=== PATIENT | female | born 1975 | race Caucasian/White ===

== ENCOUNTER 2019-11-19 13:09 | Inpatient (IN) ==
--- NOTE | 2019-11-19 13:47 | Emergency Department Note ---
ED Visit Note I assisted Dr. Toscano in the care of this patient. Please see attending attestation. Sulaiman Vega DO Resident, Family & Community Medicine, [facility] . Resident Activity Tracking Resident Involvement: Resident Care Provided Care Provided: Adult ED
[2019-11-19] MEDS ORDERED: AMPICILLIN/SULBACTAM SOD 3,000 MG in 0.9 % SODIUM CHLORIDE 100 ML IV STA (13:48)
[2019-11-19] MEDS ORDERED: SODIUM CHLORIDE 0.9% 1000ML 1,000 ML IV ONE (13:48)
[2019-11-19] MEDS ORDERED: DEXAMETHASONE SOD INJ 4 MG/ML VIAL IV STA (13:55)
--- NOTE | 2019-11-19 13:55 | Emergency Department Note ---
History of Present Illness General Chief complaint: Sore Throat Stated complaint: SORE/SWOLLEN THROAT Time Seen by Provider: 11/19/19 13:26 Source: patient Mode of arrival: ambulatory History of Present Illness Provider complaint: Sore throat Onset (ago): day(s) 2 Location: mouth and left Severity: moderate Maximum Pain Intensity: 8 Quality: + sharp Exacerbated By: + eating Associated symptoms: no chest pain, no cough, no fever/chills, no nausea/vomiting and no shortness of breath This is a 44-year-old female with no significant past medical history other than anxiety presenting with sore throat for the past 2 days. The pain is on the left side. She states it is sharp. It is worse when she tries to drink. She has been unable to drink anything. No associated fever, vomiting, chest pain, shortness of breath or cough or cold symptoms. She denies any known exposure to COVID-19 and has been quarantining at home. She denies any chance of . She rates it an 8 out of 10 in severity. She did see a telehealth doctor yesterday who put her on amoxicillin. She has had 3 doses with no improvement. Home Medications Home Medications Medication Instructions Recorded Confirmed Type lamotrigine [Lamictal] 100 mg PO QAM 11/19/19 11/19/19 History lamotrigine [Lamictal] 200 mg PO QAM 11/19/19 11/19/19 History Allergies Allergy/AdvReac Type Severity Reaction Status Date / Time No Known Allergies Allergy Unverified 11/19/19 14:24 Past Med/Surg History Medical History (Updated 11/19/19 @ 13:52 by Kj Toscano MD) Anxiety Social History (Updated 11/19/19 @ 13:53 by Kj Toscano MD) marital status: Feels Safe at Home: Yes Smoking Status: Current some day smoker Review of Systems See HPI for pertinent positives & negatives. and A total of 10 systems reviewed and were otherwise negative Physical Exam Vital Signs Vital Signs - 24 hr 11/19/19 13:17 11/19/19 14:08 Temperature 37.2 C Temperature Source Oral Pulse Rate 120 H Pulse Rate [Right Finger] 105 H Pulse Rhythm [Right Finger] Regular Respiratory Rate 19 20 Respiratory Effort / Characteristics Non-Labored Spontaneous Respiratory Depth Normal Blood Pressure 130/90 Blood Pressure [Right Arm] 145/88 H Blood Pressure Mean 103 Blood Pressure Mean [Right Arm] 107 Pulse Oximetry 98 100 Oxygen Delivery Method Room Air Room Air Sepsis Recent Fever Within 48 Hours No Sepsis Action Taken by Nursing No Action Required Constitutional: Vital signs reviewed. Eyes: Pupils are equal round reactive to light. Conjunctiva are noninjected. ENT: Pharynx is erythematous with a left peritonsillar abscess which is fluctuant on palpation. She has trismus without drooling. Mucous membranes are dry. Neck supple without meningeal signs. Respiratory: Clear to auscultation bilaterally. Breath sounds are equal bilaterally. No stridor. Cardiovascular: Tachycardic with regular rhythm. Heart rate 120. GI: Soft, nondistended and nontender. Bowel sounds are present. Musculoskeletal: No peripheral edema. No lower extremity tenderness. Integumentary: No cyanosis. or jaundice. Neurological: The patient is awake and alert. No focal deficits. Psychiatric: Anxious. Course Administered Medications Discontinued Medications Dexamethasone (Decadron) 10 mg IV NOW STA Stop: 11/19/19 13:56 Last Admin: 11/19/19 14:25 Dose: 10 mg Documented by: [id number] Ampicillin Sodium/Sulbactam Sodium 3,000 mg/ Sodium Chloride 108 mls @ 200 mls/hr IV NOW STA; Protocol Stop: 11/19/19 14:20 Last Admin: 11/19/19 14:34 Dose: 200 mls/hr Documented by: [id number] Sodium Chloride (Nss 1000ml) 1,000 mls @ 999 mls/hr IV .Q1H1M ONE Stop: 11/19/19 14:48 Last Admin: 11/19/19 14:10 Dose: 999 mls/hr Documented by: [id number] Morphine Sulfate (Morphine Sulfate) 2 mg IV NOW STA Stop: 11/19/19 14:06 Last Admin: 11/19/19 14:25 Dose: 2 mg Documented by: [id number] Ondansetron HCl (Zofran) 4 mg IV NOW STA Stop: 11/19/19 14:06 Last Admin: 11/19/19 14:25 Dose: 4 mg Documented by: [id number] Medical Decision Making Differential Diagnosis Peritonsillar abscess, strep pharyngitis, viral pharyngitis, dehydration, electrolyte abnormality Medical Records Attestation: I reviewed the patient's medical records. I did perform a limited focused review of portions of the patient's old chart on the electronic medical record. The patient has had no recent pertinent visits to this hospital. Laboratory Data Attestation: I reviewed the patient's lab results. Result diagrams: 11/19/19 14:11 11/19/19 14:11 Lab Results 11/19/19 11/19/19 Range/Units 14:11 14:11 WBC 13.48 H (4.8-10.8) K/uL RBC 4.01 L (4.2-5.4) M/uL Hgb 12.9 (12.0-16.0) g/dL Hct 37.6 (37-47) % MCV 93.8 (80-100) fL MCH 32.2 (25-34) pg MCHC 34.3 (32-36) g/dL RDW Std Deviation 43.8 (36.4-46.3) fL RDW Coeff of Mile 12.7 (11.5-14.5) % Plt Count 314 (130-400) K/uL MPV 9.5 (7.4-10.4) fL Immature Gran % (Auto) 0.3 % Neut % (Auto) 83.3 % Lymph % (Auto) 9.7 % Carroll % (Auto) 6.5 % Eos % (Auto) 0.1 % Baso % (Auto) 0.1 % Immature Gran # (Auto) 0.04 H (0.00-0.02) K/uL Neut # (Auto) 11.23 H (1.4-6.5) K/uL Lymph # (Auto) 1.31 (1.2-3.4) K/uL Carroll # (Auto) 0.87 H (0.11-0.59) K/uL Eos # (Auto) 0.02 (0-0.5) K/uL Baso # (Auto) 0.01 (0-0.2) K/uL Sodium 136 (136-145) mmol/L Potassium 3.5 (3.5-5.1) mmol/L Chloride 105 (98-107) mmol/L Carbon Dioxide 22 (21-32) mmol/L Anion Gap 9.0 (3-11) BUN 16 (7-18) mg/dl Creatinine 0.70 (0.6-1.2) mg/dl Est Cr Clr Drug Dosing 81.0 ml/min Est GFR ( Amer) 123.9 Est GFR (Non-Af Amer) 106.9 BUN/Creatinine Ratio 22.5 H (10-20) Glucose 100 H (70-99) mg/dl Calcium 9.3 (8.5-10.1) mg/dl Total Bilirubin 0.5 (0.2-1) mg/dl AST 13 L (15-37) U/L ALT 19 (12-78) U/L Alkaline Phosphatase 54 (45-117) U/L Total Protein 8.2 (6.4-8.2) gm/dl Albumin 4.4 (3.4-5.0) gm/dl Globulin 3.8 (2.5-4.0) gm/dl Albumin/Globulin Ratio 1.2 (0.9-2) Blood Pressure Blood Pressure Findings: Elevated blood pressure Blood Pressure Disposition: Referred to patients primary care provider MDM Narrative I did evaluate the patient as noted above. The patient is presenting with a sore throat for 2 days. On exam she has a left peritonsillar abscess. She is tachycardic and has not been able to drink any fluids. The case was discussed with Dr. Leyva who requested that we get a CT scan to confirm the diagnosis. IV access was established. She was treated with normal saline IV. She was also given Unasyn IV. She was given IV morphine and Zofran for the pain. I did order and review the patient's blood work as noted in the electronic medical record. Her white blood cell count is elevated. Electrolytes are unremarkable. Discharge Plan Visit Data Chief Complaint: Sore Throat Stated Complaint: SORE/SWOLLEN THROAT ED Provider: Kj Toscano ED Midlevel Provider: Sulaiman Vega Prescriptions Prescriptions: No Action lamotrigine [Lamictal] 200 mg Tablet 200 mg PO QAM RF: 0 lamotrigine [Lamictal] 100 mg Tablet 100 mg PO QAM RF: 0
[2019-11-19] MEDS ORDERED: ONDANSETRON INJ 2 MG/ML 2 ML VIAL IV STA (14:05)
[2019-11-19] MEDS ORDERED: MoRPHine SULFATE 2 MG/ML CARP IV STA (14:05)
[2019-11-19 14:19] LABS: Basophils # (auto) 0.01 K/uL (0-0.2); Basophils % (auto) 0.1 %; Eosinophils # (auto) 0.02 K/uL (0-0.5); Eosinophils % (auto) 0.1 %; Hematocrit (blood only) 37.6 % (37-47); Hemoglobin 12.9 g/dL (12.0-16.0); Immature Granulocytes # (auto) 0.04 K/uL (0.00-0.02); Immature Granulocytes % (auto) 0.3 %; Lymphocytes # (auto) 1.31 K/uL (1.2-3.4); Lymphocytes % (auto) 9.7 %; Mean Corpuscular Hemoglobin 32.2 pg (25-34); Mean Corpuscular Hgb Conc 34.3 g/dL (32-36); Mean Corpuscular Volume 93.8 fL (80-100); Mean Platelet Volume 9.5 fL (7.4-10.4); Monocytes # (auto) 0.87 K/uL (0.11-0.59); Monocytes % (auto) 6.5 %; Neutrophils # (auto) 11.23 K/uL (1.4-6.5); Neutrophils % (auto) 83.3 %; Platelet Count 314 K/uL (130-400); RDW Coefficient of Variation 12.7 % (11.5-14.5); RDW Standard Deviation 43.8 fL (36.4-46.3); Red Blood Count 4.01 M/uL (4.2-5.4); White Blood Count 13.48 K/uL (4.8-10.8)
[2019-11-19 14:37] LABS: Albumin Level 4.4 gm/dl (3.4-5.0); BUN Creatinine Ratio 22.5 (10-20); Calcium 9.3 mg/dl (8.5-10.1); Est GFR (African American) 123.9; Est GFR (Non-African American) 106.9; Potassium 3.5 mmol/L (3.5-5.1)
[2019-11-19 14:40] LABS: Albumin Globulin Ratio 1.2 (0.9-2); Bilirubin,Total 0.5 mg/dl (0.2-1); Globulin 3.8 gm/dl (2.5-4.0); Total Protein 8.2 gm/dl (6.4-8.2)
[2019-11-19] MEDS ORDERED: IOVERSOL 100ml IV PRN (15:07)
--- NOTE | 2019-11-19 15:23 | CT Scan Report ---
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 Clinical concern for sharon tonsillar abscess. COMPARISON: None TECHNIQUE: Multiple axial CT images of the soft tissues of the neck were obtained following the intra venous ministration of 92 mL Optiray 320. A dose lowering technique was used consistent with the prin cipals of HELGA. FINDINGS: Orbits are unremarkable. The imaged intracranial structures demonstrate no acute abnormality. The car otid arteries and internal jugular veins appear unremarkable. Tiny subcentimeter left thyroid nodule is likely benign. The parotid and submandibular glands appear unremarkable. Prominent submandibular a nd cervical chain lymph nodes are likely on a reactive basis. Mild enlargement of the adenoid tonsils . Bilateral palatine tonsillar calcifications are present. There is an ill-defined peripherally enhan cing 1.7 x 1.8 cm fluid collection adjacent to left palatine tonsil, image 152 series 3 which demonst rates mild loculation. This results in moderate narrowing of the oral pharynx with partial effacement of the left parapharyngeal fat plane. Mild surrounding edema extends into the retropharyngeal tissue s. Subglottic airway is unremarkable. Lung apices are clear without pneumothorax. Bones appear intact . Paranasal sinuses appear clear. Straightening of the normal cervical lordosis. Mild disc space narr owing with spondylitic spurring at C4-C5 and C5-C6. IMPRESSION: 1. Mild enlargement and heterogeneity of the adenoid and palatine tonsils is suggestive of acute tons illitis. Additionally, there is a multiloculated peripherally enhancing 1.7 x 1.8 cm fluid collection adjacent to the left palatine tonsil suggestive of a peritonsillar abscess. This results in partial effacement with at least moderate narrowing of the oral pharyngeal airway. 2. Mildly prominent level I and level II lymph nodes are likely on a reactive basis. ACT 112: Negative or not required by law. The above report was generated using voice recognition software. It may contain grammatical, syntax o r spelling errors. Electronically signed by: Primitivo Alva M.D. 11/19/2019 3:22 PM
--- NOTE | 2019-11-19 15:45 | Emergency Department Note ---
ED Visit Note I received this patient at change of shift signout from Dr. Toscano please see his note for initial history and physical. The patient is a 44-year-old female who presented to the emergency department for an evaluation of sore throat. She had signs of peritonsillar abscess. Because of the COVID-19 outbreak after discussion with ENT a CT of the neck was obtained to evaluate for peritonsillar abscess. The patient was treated with Decadron as well as Unasyn. She was treated with pain medication and when on my evaluation she was feeling much bett er. I did review the patient's CT with her. 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 Clinical concern for peritonsillar abscess. COMPARISON: None TECHNIQUE: Multiple axial CT images of the soft tissues of the neck were obtained following the intravenous ministration of 92 mL Optiray 320. A dose lowering technique was used consistent with the principals of ALARA. FINDINGS: Orbits are unremarkable. The imaged intracranial structures demonstrate no acute abnormality. The carotid arteries and internal jugular veins appear unremarka ble. Tiny subcentimeter left thyroid nodule is likely benign. The parotid and submandibular glands appear unremarkable. Prominent submandibular and cervical chain lymph nodes are likely on a reactive basis. Mild enlargement of the adenoid tonsils. Bilateral palatine tonsillar calcifications are present. There is an ill-defined peripherally enhancing 1.7 x 1.8 cm fluid collection adjacent to left palatine tonsil, image 152 series 3 which demonstrates mild loculation. This results in moderate narrowing of the oral pharynx with partial effacement of the left parapharyngeal fat plane. Mild surrounding edema extends into the retropharyngeal tissues. Subglottic airway is unremarkable. Lung apices are clear without pneumothorax. Bones appear intact. Paranasal sinuses appear clear. Straightening of the normal cervical lordosis. Mild disc space narrowing with spondylitic spurring at C4-C5 and C5-C6. IMPRESSION: 1. Mild enlargement and heterogeneity of the adenoid and palatine tonsils is suggestive of acute tonsillitis. Additionally, there is a multiloculated peripherally enhancing 1.7 x 1.8 cm fluid collection adjacent to the left palatine tonsil suggestive of a peritonsillar abscess. This results in partial effacement with at least moderate narrowing of the oral pharyngeal airway. 2. Mildly prominent level I and level II lymph nodes are likely on a reactive basis. ACT 112: Negative or not required by law. The above report was generated using voice recognition software. It may contain grammatical, syntax or spelling errors. Electronically signed by: Primitivo Alva M.D. 11/19/2019 3:22 PM Dictated: 11/19/191511 Transcribed: 11/19/191511 I also discussed the CT report with Dr. Leyva at 1530 who knew about the patient previously. At this time she would recommend the patient be admitted to the hospital. I will talk to the medicine team about medical admission for IV antibiotics. She also recommended Unasyn for an IV antibiotic continued she also recommended Decadron 10 mg every 8 hours for 3 doses. She will reevaluate the patient in the morning for possible I&D if the patient continues to have significant swelling. 1545: I discussed this case with Dr. Ovalle who is on-call for the [facility] hospitalist group. He will evaluate the patient in the emergency department for further management and disposition. .
[2019-11-19] MEDS ORDERED: fentaNYL citrate 100 MCG/2 ML VIAL IV PRN (15:49)
--- NOTE | 2019-11-19 16:43 | History & Physical Report ---
Date of Service November 19, 2019 Assessment & Plan (1) Peritonsillar abscess: As discussed with Dr Leyva by ER physician, recommended admission with IV antibiotics and steroids for review by ENT tomorrow IV Unasyn IV Decadron For pain relief: acetaminophen (can change to IV if too painful for patient to swallow), IV toradol PRN, oxycodone PO PRN, morphine IV PRN NPO after midnight with IV fluids Consult ENT (2) Anxiety: Continue lamictal Admission and Anticipated Discharge Date Admission Date: 11/19/2019 History of Present Illness Chief Complaint: Peritonsillar abscess Primary Care Provider: NO PCP Rose Mcgarry is a 44 year old female who presents to the ER with worsening neck swelling, sore throat and painful eating for the past 3 days getting progressively worse. She had a televisit with [facility] and was started on amoxicillin as an outpatient but despite this and ibuprofen her symptoms have become progressively worse. Swelling much larger the following day on Sunday. She denies any fevers or chills, shortness of breath, chest pain or known exposure to COVID-19. Allergies Allergy/AdvReac Type Severity Reaction Status Date / Time No Known Allergies Allergy Unverified 11/19/19 14:24 Home Medications Home Medications Medication Instructions Recorded Confirmed Type lamotrigine [Lamictal] 100 mg PO QAM 11/19/19 11/19/19 History lamotrigine [Lamictal] 200 mg PO QAM 11/19/19 11/19/19 History Past Med/Surg History Medical History (Updated 11/19/19 @ 16:57 by Saúl Ovalle MD) Anxiety Social History (Updated 11/19/19 @ 13:53 by Kj Toscano MD) Preferred Language: Nigerien Communication Ability: Effective Ramp Service Agent Required: No Beliefs That Will Affect Care: None marital status: Current Living Situation: Spouse Other Information That Helps Us Care for You: No Feels Safe at Home: Yes Safety Concerns: Feels Safe At This Time Smoking Status: Current some day smoker Tobacco Type: e-cigarettes ; Hx Alcohol Use: Yes Alcohol type: wine Hx Substance Use: No Review of Systems Review of Systems: All systems reviewed & are unremarkable except as noted in HPI & below Physical Exam Constitutional: well developed and well nourished; no acute distress Eyes: + anicteric sclerae; normal pupil size ENMT: Painful palpation of left side of neck, not visibly enlarged but shotty lymphadenopathy felt. Throat not examined as unlikely to change any management, already had CT findings and to reduce exposure to mouth secretions Respiratory: normal respiratory effort, lungs clear to auscultation Cardiovascular: RRR, no murmur, no edema Gastrointestinal (Abdomen): normal bowel sounds, soft, nontender, no hepatosplenomegaly Skin: no rashes, warm and dry Neurologic: moves all extremities and awake; not confused Psychiatric: A+Ox3, euthymic affect Lymphatic: + cervical lymphadenopathy (anterior shotty on left side); no subclavicular lymphadenopathy Results & Data Results & Data ([facility]) Vital Signs (Past 12 Hours) Vital Signs Temp Pulse Pulse Resp BP BP Pulse Ox 11/19/19 16:06 90 18 119/79 99 11/19/19 15:19 104 H 18 138/92 100 11/19/19 14:08 105 H 20 145/88 H 100 11/19/19 13:17 37.2 C 120 H 19 130/[address] soft tissue neck w con IMPRESSION: 1. Mild enlargement and heterogeneity of the adenoid and palatine tonsils is suggestive of acute tonsillitis. Additionally, there is a multiloculated peripherally enhancing 1.7 x 1.8 cm fluid collection adjacent to the left palatine tonsil suggestive of a peritonsillar abscess. This results in partial effacement with at least moderate narrowing of the oral pharyngeal airway. 2. Mildly prominent level I and level II lymph nodes are likely on a reactive basis. Code Status & VTE Plan Code Status Full VTE Prophylaxis Plan VTE Prophylaxis will be ordered: No Reason for no VTE drug order: Treatment not indicated Reason for no VTE mechanical prophylaxis: Treatment not indicated PG Care Time/CCT Total # of Minutes Spent Total Time Spent with Patient: Total time spent is greater than 50% in coordination of care (as documented) at patient's floor/unit and/or counseling patient: Coding Level of Care Code 06805 Initial Inpt Care Lvl 2 Diagnoses Peritonsillar abscess J36 Anxiety F41.9
[2019-11-19] MEDS: LACTATED RINGER'S 1,000 ML IV SCH (17:05)
[2019-11-19] MEDS ORDERED: ACETAMINOPHEN 325 MG TAB PO PRN (17:57)
[2019-11-19] MEDS ORDERED: ONDANSETRON INJ 2 MG/ML 2 ML VIAL IV PRN (17:57)
[2019-11-19] MEDS ORDERED: OXYCODONE HCL IR 5 MG TAB (IMMEDIATE RELEASE) PO PRN (18:29)
[2019-11-19] MEDS ORDERED: KETOROLAC 30 MG/ML VIAL IV PRN (18:32)
[2019-11-19] MEDS ORDERED: ACETAMINOPHEN 65 ML IV PRN (18:34)
[2019-11-19] MEDS: HYDROmorphone INJ 1 MG/ML SYRINGE IV PRN ×2 (18:37→23:36)
[2019-11-19] MEDS: dexAMETHasone 10 MG in SYRINGE 0 ML IV SCH (20:18)
[2019-11-19] MEDS: AMPICILLIN/SULBACTAM SOD 3,000 MG in 0.9 % SODIUM CHLORIDE 100 ML IV SCH (20:23)
[2019-11-20] MEDS: LACTATED RINGER'S 1,000 ML IV SCH (01:59)
[2019-11-20] MEDS: dexAMETHasone 10 MG in SYRINGE 0 ML IV SCH ×2 (01:59→07:53)
[2019-11-20] MEDS: AMPICILLIN/SULBACTAM SOD 3,000 MG in 0.9 % SODIUM CHLORIDE 100 ML IV SCH ×2 (01:59→07:52)
--- NOTE | 2019-11-20 07:50 | ENT Consultation ---
Date of Consultation November 20, 2019 Assessment & Plan (1) Peritonsillar abscess: 44-year-old female with left peritonsillar abscess, improved on IV antibiotics and steroids. No significant trismus or clinical findings consistent with drainable abscess today. -okay for discharge home -okay for p.o. intake -discharge on 10 days of Augmentin, Medrol Dosepak -follow-up in my office in 1-2 weeks or sooner if worsening symptoms - [phone]. My office will contact patient to arrange follow up appointment History of Present Illness Attending Physician: Kolby Bhagat MD History of Present Illness 44-year-old female seen in consultation for left peritonsillar abscess. Patient reports progressive left-sided sore throat beginning 4 days ago. Seen at urgent care and started on amoxicillin without improvement. She developed worsening trismus, left-sided throat pain, left otalgia, odynophagia, uvular edema and presented to the emergency room 11/19/2019. CT neck showed a 1.7 cm fluid collection in the left peritonsillar space. She was admitted for IV antibiotics and steroids. She reports significant improvement in her symptoms and is now managing secretions and sips easily. Her pain is much more manageable. Her trismus has improved. No prior episodes of similar symptoms. No history of recurrent strep throat. She does note a history of mild sleep apnea. Allergies Allergy/AdvReac Type Severity Reaction Status Date / Time No Known Allergies Allergy Unverified 11/19/19 14:24 Home Medications Home Medications Medication Instructions Recorded Confirmed Type lamotrigine [Lamictal] 100 mg PO QAM 11/19/19 11/19/19 History lamotrigine [Lamictal] 200 mg PO QAM 11/19/19 11/19/19 History Patient History Medical History (Updated 11/19/19 @ 16:57 by Saúl Ovalle MD) Anxiety Social History (Updated 11/19/19 @ 13:53 by Kj Toscano MD) Preferred Language: Martiniquais Communication Ability: Effective Study Assistant Required: No Beliefs That Will Affect Care: None marital status: Current Living Situation: Spouse Other Information That Helps Us Care for You: No Feels Safe at Home: Yes Safety Concerns: Feels Safe At This Time Smoking Status: Current some day smoker Tobacco Type: e-cigarettes ; Hx Alcohol Use: Yes Alcohol type: wine Hx Substance Use: No Physical Exam Physical Exam: General: The patient is well-developed, well-nourished, and in no acute distress. NORMAL VOICE Head and Face: Skull: No obvious deformities Sinus tenderness: There is no tenderness to palpation of the sinuses. Salivary glands: The parotid and submandibular glands are normal in appearance and there are no masses on palpation. Facial strength: Facial motion is symmetric and without weakness. Eyes: Eyelids: There is no periorbital edema. Conjunctiva: There is no conjunctival erythema. Pupils: The pupils are equal, round, and reactive to light. Extraocular muscles: Extraocular movement is normal. Nystagmus: There is no nystagmus. Ears: Right auricle: The pinna is normally formed without skin lesion or mass. Left auricle: The pinna is normally formed without skin lesion or mass. Hearing: Clinical speech bakery worker conveyor line threshold testing is grossly normal. Nose: External: There is no gross external deformity, tenderness, or skin lesion or mass. Mucosa: There is no nasal mucosal edema, inflammation, lesion, or mass. Septum: The nasal septum is midline. Nasal cavity: There is no inferior turbinate hypertrophy, edema, inflammation, or mass bilaterally. The inferior meatus and middle meatus were clear bilaterally without mass, lesion, mucopurulence, or polyposis. Oral cavity/Oropharynx: Lips: There are no lip lesions or masses. Oral cavity: There is no inflammation, lesion, or mass involving the gums, gingiva, floor of mouth, buccal mucosa, retromolar trigone, hard palate, soft palate, tongue. Dentition is intact. NO SIGNIFICANT TRISMUS ON EXAM TODAY. MANAGING SECRETIONS EASILY Oropharynx: MILD LEFT GREATER THAN RIGHT TONSILLAR HYPERTROPHY, MILD LEFT TONSILLAR ERYTHEMA WITHOUT EXUDATE. NO SOFT PALATE FULLNESS, NO UVULAR DEVIATION Neck: General: There are no visible scars or lesions involving the neck. There are no visible or palpable masses involving the neck. The trachea is midline. Lymph nodes: There is no visible or palpable neck lymphadenopathy. Thyroid: There is no visible or palpable thyroid enlargement or nodularity. Respiratory/Pulmonary: There is no stertor or stridor. There is normal respi ratory effort without acute distress. Cardiovascular: There is no visible extremity edema. Skin: There are no visible lesions or masses involving the skin of the head and neck region. Neurological: Cranial nerves: Cranial nerve II is noted to be intact by grossly normal visual acuity. Cranial nerves III, IV, and are noted to be intact by normal extraocular movements. Cranial nerve V is noted to be intact by normal facial sensation. Cranial nerve VII is noted to be intact by symmetric and normal facial movement. Cranial nerve VIII is noted to be intact by a relatively normal clinical speech bakery worker conveyor line threshold. Cranial nerve IX is noted to be intact by an intact gag reflex and normal palatal movement. Cranial nerve X is noted to be intact by a normal voice. Cranial nerve XI is noted to be intact by normal shoulder and head movement. Cranial nerve XII is noted to be intact by normal symmetric tongue movement. Vestibular system: The patient has a normal gait. There is no spontaneous or gaze evoked nystagmus. Psychiatric: Mental status: The patient is awake and alert. Mood/affect: The patient has a normal mood and affect. Results & Data ([facility]) Vital Signs (Past 12 Hours) Vital Signs Temp Pulse Resp BP Pulse Ox 11/20/19 07:17 36.7 C 63 16 116/77 98 11/19/19 23:20 37.0 C 80 16 115/76 97 PG Care Time/CCT Total # of Minutes Spent Total Time Spent with Patient: Total time spent is greater than 50% in coordination of care (as documented) at patient's floor/unit and/or counseling patient: Coding Level of Care Code 82210 Inpt Consult Level 4 Diagnoses Peritonsillar abscess J36
[2019-11-20] MEDS: lamoTRIgine 100 MG TAB PO SCH ×2 (08:57→09:00)
[2019-11-20] MEDS ORDERED: lamoTRIgine 100 MG TAB PO SCH (09:00)
[2019-11-20] MEDS: HYDROmorphone INJ 1 MG/ML SYRINGE IV PRN (10:44)
--- NOTE | 2019-11-20 11:53 | Discharge Summary ---
Date of Service November 20, 2019 Admission HPI Per Admitting Provider Rose Mcgarry is a 44 year old female who presents to the ER with worsening neck swelling, sore throat and painful eating for the past 3 days getting progressively worse. She had a televisit with [facility] and was started on amoxicillin as an outpatient but despite this and ibuprofen her symptoms have become progressively worse. Swelling much larger the following day on Sunday. She denies any fevers or chills, shortness of breath, chest pain or known exposure to COVID-19. Principal Diagnosis Tonsillar abscess Discharge Exam Constitutional WD/WN, vitals as above ENMT mild left tonsillar hypertrophy Respiratory normal respiratory effort, lungs clear to auscultation Musculoskeletal no cyanosis or clubbing, extremities motor strength 5/5 Skin no rashes, warm and dry Neurologic moves all extremities and awake Psychiatric A+Ox3, euthymic affect Discharge Data Allergies Allergy/AdvReac Type Severity Reaction Status Date / Time No Known Allergies Allergy Unverified 11/19/19 14:24 Consultations 11/19/19 15:46 Consult Otolaryngology (Head and Neck) Stat ED Decision to Admit Stat Ordered Studies 11/19/19 13:55 CT soft tissue neck w con Stat Hospital Course (1) Peritonsillar abscess: Given IV Unasyn and IV Decadron inpatient Pain relief Able to tolerate food and water today, feeling better, no difficulty breathing ENT saw patient today and felt she was OK for discharge Per their recommendation - Augmentin and Medrol dosepak and follow up with them in 1-2 weeks. Patient requests COVID test - she has been having diarrhea though these symptoms have been ongoing over the last month, some loss of taste, low grade fevers and of course sore throat. Will test before discharge today. (2) Anxiety: Continue lamictal Total Time Total Time Spent Total Time Spent (In Minutes): greater than 30 minutes Discharge Plan Discharge Items Patient Disposition: Home - Self-Care Reason For Visit: PERITONSILLAR ABSCESS Discharge Diagnosis: Peritonsillar abscess Activity: Resume your previous activity Non-emergency contact: Primary Care Provider Call non-emergency contact if: you have any medication questions Follow-up/Referrals: Chito Leyva MD [Physician] - 12/04/19 11:30 am PCP,NO [Primary Care Provider] - Diet: Regular Addtl Attending Provider Instructions: You were diagnosed with a peritonsilar abscess. You were evaluated by [facility] who felt you were stable to discharge home. You will take Augmentin as well as a tapering steroid Medrol pack. Please follow-up with Dr. Chito Leyva from [facility] in 1-2 weeks or sooner if worsening symptoms - [phone]. My office will contact patient to arrange follow up appointment You will be swabbed for COVID 19 at discharge. You should remain isolated at home until you have the results of this test. Pending Studies at Discharge: Yes Studies:: COVID - 19 Stand-Alone Forms: My [facility], Opioid Pain Management, Smoking Cessation Medications and DC Order Prescriptions: New amoxicillin-pot clavulanate [Augmentin] 875-125 mg tablet 1 tab PO BID Qty: 26 RF: 0 methylprednisolone [Medrol (Kb)] 4 mg tablets,dose pack 4 mg PO DAILY Qty: 21 RF: 0 acetaminophen [Mapap (acetaminophen)] 325 mg Tablet 650 mg PO Q4H PRN (Reason: pain) Qty: 30 RF: 0 oxycodone 5 mg Tablet 5 mg PO Q6H PRN (Reason: pain) Qty: 20 RF: 0 Continued lamotrigine [Lamictal] 200 mg Tablet 200 mg PO QAM RF: 0 lamotrigine [Lamictal] 100 mg Tablet 100 mg PO QAM RF: 0 Discharge Orders: Discharge Order (Routine); Ordered 11/20/19 Ordered By: Gaby Cali/Other Patient Handouts: Peritonsillar Abscess, COVID-19 Home Care Admission Data Admit Date/Time: 11/19/19 16:50 Attending Provider: Kolby Bhagat Admit Provider: Saúl Ovalle Primary Care Provider: PCP,NO Other Providers: Chito Leyva ; Kolby Bhagat Other Interventions: Discharge Summary Assessment (RN) Last Done: 11/20/19 12:45 DC Date/Time DO NOT enter until pt leaves facility: 11/20/19 14:37 Coding Level of Care Code D/C Day Management >30 mins Diagnoses Peritonsillar abscess J36 Anxiety F41.9
--- NOTE | 2019-11-21 11:25 | Communication Note ---
Date of Service: November 21, 2019 Called patient to let her know that her COVID results were negative. Answered questions regarding drug regimen. She is having some diarrhea which I told her is very common with Augmentin but if she is having increasing stools or stools that are dark and tarry or bloody or if she starts running a fever she should call her doctor to obtain a test for C.Diff.
--- NOTE | 2019-11-22 16:33 | Communication Note ---
Date of Service: November 22, 2019 Ms. Lares called the hospital concerned about feeling unwell. She is feeling shaky and anxious and "like my skin is crawling". She denied any fever, her throat continues to improve. She reports that she continues to have loose stools but not multiple stools per day. I advised her to stop taking her steroid (today is day 4 of steroids so she is ok to stop without taper) and to update the ENT office tomorrow morning as the steroids are probably what is making her feel unwell. I told her to continue the Augmentin. I advised her to call her pcp or return to the ED if she starts to run a fever or feels worse.
== END 2019-11-20 14:37 | disposition home or self-care (01) | DRG 153 ==
LOC: ED 13:09 → SUATTDRO 16:50 → 3E 16:50